=== PATIENT | female | born 1970 | race Caucasian/White ===

== ENCOUNTER 2017-07-18 16:12 | Emergency (ER) | payer OTHER ==
[~2017-07-18] VITALS: Ht 167.6 cm; Wt 74.8 kg
[2017-07-18] MEDS ORDERED: IBUPROFEN 600 MG TABLET PO ONE (16:54)
[2017-07-18] MEDS: IBUPROFEN 600 MG TABLET PO ONE (16:56)
[2017-07-18 17:03] VITALS: BP 127/87
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
== END 2017-07-18 17:22 | disposition home or self-care (01) ==
LOC: ER 16:23
DX: S51.811A Laceration without foreign body of right forearm, initial encounter (principal); S51.851A Open bite of right forearm, initial encounter; Z88.1 Allergy status to other antibiotic agents; Z88.6 Allergy status to analgesic agent; Z88.5 Allergy status to narcotic agent; W54.0XXA Bitten by dog, initial encounter; Y93.89 Activity, other specified; Y92.89 Other specified places as the place of occurrence of the external cause; Y99.8 Other external cause status
CPT/HCPCS: A4606; A6402; A6403; Z7610